=== PATIENT | female | born 1940 | race Caucasian/White ===

== ENCOUNTER 2016-08-11 13:51 | Inpatient (IN) | payer MEDICARE, OTHER ==
[~2016-08-11] VITALS: Ht 167.6 cm; Wt 117.7 kg
--- NOTE | 2016-08-15 02:38 | NUR ---
PT CALLED OUT AT 0015 IN PAIN AND REPOSITIONED, LEG REWRAPPED IN [place] WRAP, FRESH ICE PUT IN POLAR ALEXANDRE, BUT PERCOCET X 2 GIVEN AT 2300 AND NO PRN PAIN MEDS AVAILABLE. PT CALLED OUT AT 0230 AND SAID "I'M IN HERE SUFFERING" ON THE CALL LIGHT. WHEN RN IN ROOM, PT TEARFUL AND SAID PAIN IS 12/10. RN GAVE PRN PERCOCET X 2 AT THIS TIME. PT REPOSITIONED TO CHAIR. PT ASKED "CAN'T YOU GIVE ME A SHOT OF SOMETHING [TO HELP PAIN]". WILL MONITOR.
--- NOTE | 2016-08-15 03:20 | NUR ---
PT CALLED OUT AGAIN AT 0315 FOR PAIN OF 04/11. PERCOCET GIVEN AT 0230. CALLED [employer] FITNESS INSTRUCTOR JANNIE ALEJO AND ORDER FOR IM TORADOL 30 MG X 1.
--- NOTE | 2016-08-20 11:21 | NUR ---
RES'D CAUGHT UP BY HERSELF TO BATHROOM SHE HAD TAKEN CHAIR ALARM OUT AND WAS BEHIND CHAIR, WAS PLACED BACK IN CHAIR AND WAS TOLD NOT GET UP BY HERSELF, HAS NOT BEEN MADE INDEPENDENT PER THERAPY, ASKED TO PLEASE USE CALL LIGHT
--- NOTE | 2016-08-23 10:59 | NUR ---
INVITED PT. TO CARE TEAM TONE. SHE STATED THAT SHE HAD FELT NAUSEATED, BUT WAS FEELING BETTER AND WANTED TO WAIT FOR PT. ADVISED PT. THAT WE HAD NOT DETERMINED A D/C DATE OF YET. PT. WAS IN AGREEMENT TO REMAIN.
--- NOTE | 2016-08-25 11:55 | NUR ---
PATIENT'S CHAIR ALARM HAS BEEN REPLACED IN CHAIR NUMEROUS TIMES AND THE PATIENT CONTINUES TO REMOVE THE PAD OR JUST TURNS IT OFF HERSELF. WHEN THE PATIENT WAS ADVISED TO NOT DO THAT IF WAS FOR HER SAFETY SHE STATES "IF YOU PUT IT BACK I'M GONNA TAKE IT OFF."
--- NOTE | 2016-08-29 08:29 | NUR ---
WENT IN TO GIVE MEDS AND CAUGHT RES'D UP WALKING TO BATHROOM BY HERSELF HAD TAKEN CHAIR ALARM OUT OF CHAIR AGAIN, AND TURNED OFF, FOUND A DICLOFENAC PILL IN ROOM, AND A HEATING PAD AND USING BENGAY, PLACED CHAIR ALARM AGAIN BACK IN CHAIR AND TURNED ON, EXPLAINED TO HER HEATING PADS WERE ILLEGAL IN NURSING HOMES AND WE ON THIS UNIT HAD TO FOLLOW [employer] ARCHITECT RULES, PLACED IN TOP OF CLOSET, ALSO EXPLAINED HER THE DANGER OF USING BENGAY AND HEATING PADS TOGETHER, DUE TO GREAT CHANCE OF BLISTERING SKIN, REMINED HER AGAIN TO CALL FOR HELP AND CALL LIGHT WITH IN REACH
--- NOTE | 2016-08-29 09:27 | NUR ---
WENT BACK TO RES'D SO I COULD REMOVE JOSUE, RES'D UP AT CLOSET WITH NO WALKER, HAD TURNED CHAIR ALARM OFF THIS TIME, TOOK TO BATHROOM WITH WALKER AND TOLD TO PLEASE USE CALL LIGHT, SHE DID PUT LIGHT ON BUT STARTED OUT BEFORE STAFF COULD GET THERE, TRIED TO EXPLAIN THE DANGERS, RISK TO GETTING UP WITH OUT HELP, THERAPY MUST FEEL SHE IS STILL UNSAFE, DUE TO NOT MAKING HER INDEPENDENT OF YET, TALKED WITH THERAPY ABOUT THE SITUATION AND THERAPY TALKED TO HER, ABOUT REASON DUE TO HER BALANCE IS NOT GOOD FOR HER TO BE UP BY HERSELF, THERAPIST TOLD HER NUMEROUS TIMES NOT TO GET BY HERSELF, PLEASE TO USE CALL LIGHT
--- NOTE | 2016-08-30 14:38 | NUR ---
PATIENT TURNED CHAIR ALARM OFF AGAIN. STATES "TURN IT BACK ON AND I"LL JUST THROW IT IN THE FLOOR" REINSTRUCTED PATIENT ON THE DANGERS OF FALLING AND SHE STATES "I SAID I DON'T WANT THOSE ALARMS".
--- NOTE | 2016-08-30 17:05 | NUR ---
ADOLFO WITH THERAPY AND MYSELF MET WITH PT. THIS DATE. DISCUSSED THE IMPORTANCE OF USING CHAIR ALARMS AND CALLING OUT FOR ASSISTANCE. DISCUSSED WITH PT. IF SHE WOULD HAVE ASSISTANCE AT HOME. PT. STATES THAT SHE WILL HAVE VERY LIMITED ASSISTANCE. ADVISED PT. THAT SHE WOULD HAVE A HH AGENCY TO ASSIST HER. NO DISCHARGE DATE HAS BEEN SET OF YET.
--- NOTE | 2016-09-01 09:07 | NUR ---
MET WITH MS. CASTELLANO ON 08/31/16. SHE STATED THAT SHE WANTED TO GO HOME ON 09/01/16. PAPERWORK COMPLETED WITH PT. 09/01/16-PT. TO D/C HOME THIS DATE. PT. HAS A ROLLING WALKER, 3 IN 1 AND SHOWER SEAT. PT. XARELTO THERAPY IS COMPLETED. D/C NOTICE AND QUESTIONNAIRE GIVEN.
--- NOTE | 2016-09-01 10:14 | NUR ---
DISCUSSED DISCHARGE INSTRUCTIONS WITH PT AND SON. SCRIPTS BESIDES PAIN MEDICATION FAXED TO [facility] PER PT REQUEST. PT IN STABLE CONDITION. DISCHARGED HOME WITH SON VIA WHEELCHAIR
[2016-09-01] MEDS ORDERED: TOPROL XL50 MG PO (11:25)
[2016-09-01] MEDS ORDERED: ASPIRIN CHEWABL81 MG PO (11:25)
[2016-09-01] MEDS ORDERED: LAXATIVE OF CHOICE (11:27)
[2016-09-01] MEDS ORDERED: OS-CAL 500+D31 EACH PO (11:27)
[2016-09-01] MEDS ORDERED: ETODOLAC500 MG PO (11:27)
[2016-09-01] MEDS ORDERED: ZOFRAN4 MG PO (11:28)
[2016-09-01] MEDS ORDERED: ACETAMINOPHEN325 MG PO (11:28)
[2016-09-01] MEDS ORDERED: FEOSOL325 MG PO (11:29)
[2016-09-01] MEDS ORDERED: COLACE100 MG PO (11:29)
[2016-09-01] MEDS ORDERED: BENADRYL ITCH28.3 G1 TOP (11:29)
[2016-09-01] MEDS ORDERED: PRILOSEC20 MG PO (11:29)
[2016-09-01] MEDS ORDERED: NEURONTIN100 M1 PO (11:29)
[2017-02-28] MEDS ORDERED: LEVO-T200 MCG PO (11:25)
[2017-02-28] MEDS ORDERED: MOBIC7.5 MG PO ×2 (16:02→16:08)
[2017-02-28] MEDS ORDERED: BACLOFEN 10MG T10 MG PO (16:02)
[2017-02-28] MEDS ORDERED: NORCO 5-325 TA1 EACH PO (16:04)
[2017-02-28] MEDS ORDERED: HYDROCORTISONE30 G5 TOP (16:08)
[2017-02-28] MEDS ORDERED: BENADRYL25 MG PO (16:09)
== END 2016-09-01 10:15 | disposition home health service (06) | DRG 561 ==
LOC: FSNU 13:51 → EDBD 09-01 10:15 → FSNU 09-01 10:15
PROVIDERS: ADMIT Legal Medicine
PROC: 3E0234Z Introduction of Serum, Toxoid and Vaccine into Muscle, Percutaneous Approach (ICD-10-PCS; principal; 2016-08-12)
DX: Z47.1 Aftercare following joint replacement surgery (principal); I48.91 Unspecified atrial fibrillation; I10 Essential (primary) hypertension; Z96.652 Presence of left artificial knee joint; R11.0 Nausea; E03.9 Hypothyroidism, unspecified; Z23 Encounter for immunization
CPT/HCPCS: 90686; 92523; 97110; 97116; 97162; 97165; 97530; 97530-GP; 97532; 97535; 97537; G0008; J1885

== ENCOUNTER 2016-09-19 18:09 | Emergency (ER) | payer MEDICARE, OTHER ==
[~2016-09-19 18:09] MED LIST: ACETAMINOPHEN325 MG PO; ASPIRIN CHEWABL81 MG PO; BENADRYL ITCH28.3 G1 TOP; COLACE100 MG PO; ETODOLAC500 MG PO; FEOSOL325 MG PO; LAXATIVE OF CHOICE; NEURONTIN100 M1 PO; OS-CAL 500+D31 EACH PO; PRILOSEC20 MG PO; TOPROL XL50 MG PO; ZOFRAN4 MG PO
[2016-09-19 19:49] LABS: BASOPHIL 0.6 % (0-2); EOSINOPHIL 1.7 % (0-7); HCT 42.6 % (37.0-47.0); HGB 14.3 g/dl (12.5-16.0); LYMPHOCYTE 16.9 % (15-48); MCH 29.2 pg (25.0-31.0); MCHC 33.6 g/dL (32.0-36.0); MCV 86.9 fL (78.0-100.0); MONOCYTE 10.1 % (0-12); MPV 9.8 fL (6.0-9.5); NEUTROPHIL 70.7 % (41-80); PLT 390 K/uL (150-400); RDW 13.6 % (11.5-14.0); WBC 8.7 K/uL (4.0-10.5)
[2016-09-19 19:59] LABS: INR 1.08 (0.9-1.2); PROTHROMBIN TIME 13.6 SECONDS (11.7-14.0)
[2016-09-19 20:06] LABS: ALBUMIN 4.5 g/dL (3.4-4.8); BILIRUBIN - TOTAL 0.6 mg/dL (0.1-1.0); CREATININE 0.9 mg/dL (0.5-1.0); GLOBULIN (CALCULATION) 2.3 g/dL (2.2-4.2); POTASSIUM 3.8 mmol/L (3.5-5.1); TOTAL PROTEIN 6.8 g/dL (6.4-8.3)
[2016-09-19 20:07] LABS: CKMB 1.03 ng/mL (0.97-4.94); MYOGLOBIN 28 ng/mL (26-65); TROPONIN T < 0.010 ng/mL
[2017-02-28] MEDS ORDERED: LEVO-T200 MCG PO (11:25)
[2017-02-28] MEDS ORDERED: BACLOFEN 10MG T10 MG PO (16:02)
[2017-02-28] MEDS ORDERED: MOBIC7.5 MG PO ×2 (16:02→16:08)
[2017-02-28] MEDS ORDERED: NORCO 5-325 TA1 EACH PO (16:04)
[2017-02-28] MEDS ORDERED: HYDROCORTISONE30 G5 TOP (16:08)
[2017-02-28] MEDS ORDERED: BENADRYL25 MG PO (16:09)
== END 2016-09-19 20:54 | disposition home or self-care (01) ==
LOC: FER 18:09
PROVIDERS: Emergency Medicine Emergency Medical Services
DX: I10 Essential (primary) hypertension (principal); H53.8 Other visual disturbances; R51 Headache; Z88.5 Allergy status to narcotic agent; Z79.899 Other long term (current) drug therapy
CPT/HCPCS: 36415; 70450; 71010; 80053; 80061; 82550; 82553; 83874; 84484; 85025; 85610; 85730; 93005; J1885

== ENCOUNTER 2020-09-23 16:04 | Emergency (ER) | payer OTHER ==
[~2020-09-23 16:04] MED LIST changes: +ALLEGRA ALLERG180 MG PO; +AUGMENTIN250 MG PO; +BACLOFEN 10MG T10 MG PO; +BENADRYL25 MG PO; +BENTYL10 MG PO; +CELEBREX **OUT100 MG PO; +FAMCICLOVIR500 MG PO; +HAIR, SKIN AND1 EAC1 PO; +HYDROCORTISONE30 G5 TOP; +ILOTYCIN1 GM OS; +LEVAQUIN500 MG PO; +LEVO-T200 MCG PO; +MEDROL 4MG DOSEP4 MG PO; +MELATONIN10 M2 PO; +MOBIC7.5 MG PO; +NEURONTIN300 M1 PO; +NEURONTIN300 MG PO; +NORCO 5-325 TA1 EACH PO; +TORSEMIDE100 MG PO
[2020-09-23 17:37] LABS: BASOPHIL 0.5 % (0-2); EOSINOPHIL 3.8 % (0-7); HCT 40.7 % (37.0-47.0); HGB 13.3 g/dl (12.5-16.0); LYMPHOCYTE 15.2 % (15-48); MCH 28.9 pg (25.0-31.0); MCHC 32.7 g/dL (32.0-36.0); MCV 88.3 fL (78.0-100.0); MONOCYTE 12.4 % (0-12); MPV 10.8 fL (6.0-9.5); NEUTROPHIL 67.7 % (41-80); NRBC 0; PLT 197 K/uL (150-400); RBC 4.61 M/uL (4.20-5.40); RDW 14.6 % (11.5-14.0); WBC 9.9 K/uL (4.0-10.5)
[2020-09-23 17:50] LABS: ALBUMIN 3.6 g/dL (3.4-5.0); GLOBULIN (CALCULATION) 3.1 g/dL; POTASSIUM 4.1 mmol/L (3.5-5.1); TOTAL PROTEIN 6.7 g/dL (6.4-8.2)
[2020-09-23 17:53] LABS: BILIRUBIN NEGATIVE (NEGATIVE); BLOOD NEGATIVE Ery/uL (NEGATIVE); CLARITY CLEAR (CLEAR); COLOR YELLOW (YELLOW); GLUCOSE (U) NORMAL (NORMAL); LEUKOCYTES 1+ Leu/uL (NEGATIVE); NITRITE NEGATIVE (NEGATIVE); PROTEIN NEGATIVE (NEGATIVE); SPECIFIC GRAVITY 1.015 (1.001-1.030); UROBILINOGEN 0.2 mg/dL (0.2-1.0); pH 7.5 (5.0-9.0)
[2020-09-23 17:58] LABS: URINARY RBC RARE; URINARY WBC RARE
[2020-09-23 20:15] LABS: CORONAVIRUS 2019 SARS-COV-2 NEGATIVE (NEGATIVE); INFLUENZA A NAA NEGATIVE (NEGATIVE)
== END 2020-09-23 20:58 | disposition home or self-care (01) ==
LOC: FER 16:04
PROVIDERS: Nurse Practitioner Family
DX: R51.9 Headache, unspecified (principal); R50.9 Fever, unspecified; N18.9 Chronic kidney disease, unspecified; Z20.822 Contact with and (suspected) exposure to COVID-19; Z86.69 Personal history of other diseases of the nervous system and sense organs; Z98.890 Other specified postprocedural states; Z88.5 Allergy status to narcotic agent
CPT/HCPCS: 36415; 70450; 71046; 80053; 81001; 85025; 87088; J1100; J7030; U0002

== ENCOUNTER 2020-12-29 19:31 | Day surgery (SDCO) | payer OTHER ==
[~2020-12-29] VITALS: Ht 170.2 cm; Wt 116.7 kg
[2020-12-29 20:06] LABS: EOSINOPHIL 1.2 % (0-7); HCT 40.7 % (37.0-47.0); HGB 13.4 g/dl (12.5-16.0); LYMPHOCYTE 8.9 % (15-48); MCH 29.1 pg (25.0-31.0); MCHC 32.9 g/dL (32.0-36.0); MCV 88.3 fL (78.0-100.0); MONOCYTE 3.5 % (0-12); MPV 10.6 fL (6.0-9.5); NRBC 0; PLT 165 K/uL (150-400); RBC 4.61 M/uL (4.20-5.40); RDW 14.4 % (11.5-14.0); WBC 5.1 K/uL (4.0-10.5)
[2020-12-29 20:20] LABS: ALBUMIN 3.8 g/dL (3.4-5.0); BILIRUBIN - TOTAL 1.2 mg/dL (0.2-1.0); BUN/CREAT RATIO (CALC) 15.3 RATIO; C-REACTIVE PROTEIN 0.7 mg/dL (<=0.90); CREATININE 0.98 mg/dL (0.51-0.95); GLOBULIN (CALCULATION) 3.5 g/dL; POTASSIUM 3.5 mmol/L (3.5-5.1); TOTAL PROTEIN 7.3 g/dL (6.4-8.2)
[2020-12-29 20:26] LABS: PRO-BNP 1463 pg/mL (<450)
[2020-12-30] MEDS ORDERED: AMOXICILLIN500 MG PO (00:53)
[2020-12-30] MEDS ORDERED: MACRODANTIN50 MG PO (00:54)
[2020-12-30] MEDS ORDERED: GABAPENTIN800 MG PO (00:55)
[2020-12-30] MEDS ORDERED: TOPROL XL 50 MG50 MG PO (00:55)
[2020-12-30] MEDS ORDERED: SYNTHROID150 MCG PO (00:56)
[2020-12-30 06:17] LABS: BASOPHIL 0 % (0-2); EOSINOPHIL 0 % (0-7); HCT 39.2 % (37.0-47.0); HGB 12.7 g/dl (12.5-16.0); LYMPHOCYTE 10.9 % (15-48); MCH 28.7 pg (25.0-31.0); MCHC 32.4 g/dL (32.0-36.0); MCV 88.5 fL (78.0-100.0); MONOCYTE 2.8 % (0-12); MPV 10.8 fL (6.0-9.5); NEUTROPHIL 85.9 % (41-80); NRBC 0; PLT 153 K/uL (150-400); RBC 4.43 M/uL (4.20-5.40); RDW 14.1 % (11.5-14.0); WBC 4.6 K/uL (4.0-10.5)
[2020-12-30 06:33] LABS: BUN/CREAT RATIO (CALC) 18.4 RATIO; CREATININE 0.87 mg/dL (0.51-0.95)
[2020-12-30] MEDS ORDERED: TORSEMIDE100 MG PO (09:33)
--- NOTE | 2020-12-30 12:23 | NUR ---
DISCHARGE ORDERS RECEIVED. PT HAD ECHO BEFORE DISCHARGE. IV DC'D. PT VERBALIZED UNDERSTANDING OF ALL DISCHARGE ORDERS. PT VERBALIZED UNDERSTANDING OF STRESS TEST ORDERS. PT TO BE CALLED WITH APPOINTMENT PENDING INSURANCE APPROVAL. FOLLOW UP APPOINTMENTS MADE. PT TO BE TAKEN TO PT SUBSTITUTE TEACHER PER WHEELCHAIR.
== END 2020-12-30 12:40 | disposition home or self-care (01) ==
LOC: FER 19:31 → FTCU 23:02
PROVIDERS: Emergency Medicine Emergency Medical Services; Nurse Practitioner; ADMIT Internal Medicine
DX: I11.0 Hypertensive heart disease with heart failure (principal); I50.33 Acute on chronic diastolic (congestive) heart failure; M25.512 Pain in left shoulder; R07.9 Chest pain, unspecified; R79.89 Other specified abnormal findings of blood chemistry; I49.5 Sick sinus syndrome; I48.19 Other persistent atrial fibrillation; E03.9 Hypothyroidism, unspecified; M19.90 Unspecified osteoarthritis, unspecified site; R73.03 Prediabetes; G89.4 Chronic pain syndrome; I73.00 Raynaud's syndrome without gangrene; I27.20 Pulmonary hypertension, unspecified; M81.0 Age-related osteoporosis without current pathological fracture; Z96.653 Presence of artificial knee joint, bilateral; Z90.49 Acquired absence of other specified parts of digestive tract; Z90.710 Acquired absence of both cervix and uterus; Z95.0 Presence of cardiac pacemaker; Z82.49 Family history of ischemic heart disease and other diseases of the circulatory system; Z88.5 Allergy status to narcotic agent; Z79.82 Long term (current) use of aspirin; Z20.822 Contact with and (suspected) exposure to COVID-19
CPT/HCPCS: 36415; 71045; 71275; 73030; 80048; 80053; 83690; 83880; 84484; 85025; 85379; 86140; 93005; G0378; J1650; J1940; J7040; Q9967; U0002

== ENCOUNTER 2021-08-04 04:28 | Inpatient (IN) | payer OTHER ==
[~2021-08-04] VITALS: Ht 170.2 cm; Wt 103.9 kg
[~2021-08-04 04:28] MED LIST changes: +AMOXICILLIN500 MG PO; +GABAPENTIN800 MG PO; +MACRODANTIN50 MG PO; +SYNTHROID150 MCG PO; +TOPROL XL 50 MG50 MG PO
[2021-08-04 04:52] LABS: BASOPHIL 1.1 % (0-2); EOSINOPHIL 2.9 % (0-7); HCT 37.5 % (37.0-47.0); HGB 11.8 g/dl (12.5-16.0); LYMPHOCYTE 20.9 % (15-48); MCH 29.4 pg (25.0-31.0); MCHC 31.5 g/dL (32.0-36.0); MCV 93.3 fL (78.0-100.0); MONOCYTE 12.6 % (0-12); MPV 10.4 fL (6.0-9.5); NEUTROPHIL 62.2 % (41-80); NRBC 0; PLT 248 K/uL (150-400); RBC 4.02 M/uL (4.20-5.40); RDW 17.1 % (11.5-14.0); WBC 7.4 K/uL (4.0-10.5)
[2021-08-04 05:11] LABS: ALBUMIN 3.4 g/dL (3.4-5.0); BILIRUBIN - TOTAL 1.1 mg/dL (0.2-1.0); BUN/CREAT RATIO (CALC) 11.6 RATIO; CREATININE 1.12 mg/dL (0.51-0.95); GLOBULIN (CALCULATION) 3.8 g/dL; POTASSIUM 3.2 mmol/L (3.5-5.1); TOTAL PROTEIN 7.2 g/dL (6.4-8.2)
[2021-08-04 07:27] LABS: CLARITY CLEAR (CLEAR); COLOR YELLOW (YELLOW); GLUCOSE (U) NORMAL (NORMAL); PROTEIN NEGATIVE (NEGATIVE); pH 5.5 (5.0-9.0)
[2021-08-04 07:28] LABS: BACTERIA TRACE; BILIRUBIN NEGATIVE (NEGATIVE); BLOOD NEGATIVE Ery/uL (NEGATIVE); LEUKOCYTES 1+ Leu/uL (NEGATIVE); NITRITE NEGATIVE (NEGATIVE); URINARY RBC RARE; UROBILINOGEN 0.2 mg/dL (0.2-1.0)
[2021-08-04] MEDS ORDERED: MACRODANTIN50 MG PO (16:19)
[2021-08-04] MEDS ORDERED: TOPROL XL 50 MG50 MG PO (16:19)
[2021-08-04] MEDS ORDERED: ASPIRIN EC81 MG PO (16:20)
[2021-08-04] MEDS ORDERED: SYNTHROID88 MCG PO (16:21)
[2021-08-04] MEDS ORDERED: TORSEMIDE100 MG PO ×2 (17:17→17:18)
[2021-08-05 07:11] LABS: CREATININE 1.27 mg/dL (0.51-0.95); POTASSIUM 4.1 mmol/L (3.5-5.1)
[2021-08-05 07:17] LABS: MAGNESIUM 2.3 mg/dL (1.8-2.4)
--- NOTE | 2021-08-05 11:03 | NUR ---
MET WITH PT CONCERNING DC NEEDS. PT. STATED THAT SHE LIVES ALONE, BUT HE SON LIVES ACROSS THE STREET FROM HER. SHE IS INDEPENDENT UNLESS SHE GOES OUTSIDE AND SOMETIMES USES A CANE. SHE IS NOT CURRENT WITH HH AND DOES NOT WANT HH SERVICES AT THIS TIME. SHE STATED THAT HER PCP, CARSON NAYAK, WILL ORDER HH SERVICES FOR HER WHEN SHE WANTS THEM. PT STATED THAT SHE DOES NOT WANT ANYONE ELSE IN HER HOUSE UNTIL THE "COVID GERM" HAS TIME TO CLEAR OUT OF HER HOME.
[2021-08-06 07:10] LABS: BUN/CREAT RATIO (CALC) 10.8 RATIO; CREATININE 1.2 mg/dL (0.51-0.95); POTASSIUM 3.8 mmol/L (3.5-5.1)
--- NOTE | 2021-08-06 10:56 | NUR ---
08/06/21 Ms. Ramos is ready for discharge per Dr. Ames. Ronal Graff, son, , states, " the roads are too band and we can't get out". He was requested to re-evaluate the road conditions this afternoon and to call her nurse.
--- NOTE | 2021-08-06 12:49 | NUR ---
DELAY OF DISCHARGE HAS BEEN PUT IN [facility].
== END 2021-08-07 11:37 | disposition home or self-care (01) | DRG 291 ==
LOC: FER 04:28 → FMS 13:35
PROVIDERS: Emergency Medicine; Nurse Practitioner Acute Care; ADMIT Internal Medicine
DX: I13.0 Hypertensive heart and chronic kidney disease with heart failure and stage 1 through stage 4 chronic kidney disease, or unspecified chronic kidney disease (principal); I50.33 Acute on chronic diastolic (congestive) heart failure; K76.6 Portal hypertension; N18.30 Chronic kidney disease, stage 3 unspecified; I27.20 Pulmonary hypertension, unspecified; Z20.822 Contact with and (suspected) exposure to COVID-19; E87.6 Hypokalemia; E83.42 Hypomagnesemia; I95.9 Hypotension, unspecified; K75.81 Nonalcoholic steatohepatitis (NASH); R09.02 Hypoxemia; E66.9 Obesity, unspecified; I08.1 Rheumatic disorders of both mitral and tricuspid valves; E03.9 Hypothyroidism, unspecified; I25.10 Atherosclerotic heart disease of native coronary artery without angina pectoris; R82.71 Bacteriuria; I48.91 Unspecified atrial fibrillation; I73.00 Raynaud's syndrome without gangrene; Z96.653 Presence of artificial knee joint, bilateral; Z87.440 Personal history of urinary (tract) infections; Z86.16 Personal history of COVID-19; Z90.710 Acquired absence of both cervix and uterus; Z85.42 Personal history of malignant neoplasm of other parts of uterus; Z90.49 Acquired absence of other specified parts of digestive tract; Z85.820 Personal history of malignant melanoma of skin; Z98.49 Cataract extraction status, unspecified eye; Z68.35 Body mass index [BMI] 35.0-35.9, adult; Z95.0 Presence of cardiac pacemaker; Z88.5 Allergy status to narcotic agent
CPT/HCPCS: 36415; 71045; 71275; 80048; 80053; 81001; 83036; 83605; 83690; 83735; 83880; 84484; 85025; 85379; 87088; 93005; 94760; 96372; C9113; J1650; J1940; J2405; J3010; J3475; J3480; J7050; Q9967; U0002